=== PATIENT | male | born 1955 | race Caucasian/White ===

== ENCOUNTER 2016-08-15 18:34 | Emergency (ER) | payer OTHER ==
--- NOTE | 2016-08-15 20:22 | ED NURSING NOTES ---
Clinical Report - Nurses [facility] [address] [place] [address] 08/15/2016 18:35 Patient: SHANNAN GUSTAFSON TRIAGE Triage time 18:40 Aug 15 2016. Acuity: LEVEL 2. Chief Complaint: CHEST PAIN. 18:50 08/15/16. Alert. No acute distress. SEPSIS SCREEN: Sepsis Screen. Negative (no infection suspected/documented). AUSTIN COMA SCORE: Austin Coma Scale: 15- eyes open spontaneously (4); best verbal response- oriented x 4 (5); best motor response- obeys commands (6). --18:50 Tanvi Watson 18:50 08/15/16. BP: 192/83. HR: 64. RR: 18. O2 saturation: 99%. Temp: 98.4 F. Pain level now 2/10. --18:50 Tanvi Watson. Weight: 92 kg stated. Height/Length: 66 inches Per Patient. BMI: 32.8. --18:49 Tanvi Watson. Medications Metoprolol Tartrate Oral 25 mg, 2xdaily. --18:46 Tanvi Watson Losartan Potassium Oral 50 mg, daily (started yesterday). --18:46 Tanvi Watson Atorvastatin Calcium Oral 10 mg, daily. --18:47 Tanvi Watson. Medication/allergy information source: the patient. --18:50 Tanvi Watson. Allergies Sulfa Antibiotics.(itching) --18:45 Tanvi Watson. History Arrived by private vehicle. Historian: patient. Accompanied by spouse. Primary physician ([facility]). Onset. (End of last week, got worse). Describes the quality as aching. Relates location as in the left shoulder. Notes pain level as 3/10 on arrival and 5/10 at maximum. ( Pt feels clammy, light headed, and has pain in his left shoulder. Reports gas and decreased appetite. Pt reports anxiety.). He has had a subjective fever. No difficulty breathing, nausea, vomiting or cough. Treatment ADMISSIONS RECRUITER: None. PAST MEDICAL HX: Immunizations: up-to-date. SOCIAL HX: Never smoker. Occasional alcohol use. History of occasional drug use: marijuana. FALL RISK ASSESSMENT: Fall risk assessment completed. No fall risk identified. NUTRITIONAL RISK ASSESSMENT: The nutritional risk assessment revealed no deficiencies. FUNCTIONAL ASSESSMENT: Functional assessment: no impairments noted. LEARNING NEEDS ASSESSMENT: The learning needs assessment revealed no barriers. SKIN INTEGRITY ASSESSMENT: Skin integrity risk assessment completed. No skin integrity risk identified. --18:50 Tanvi Watson. PROBLEMS: Hypertension. --18:48 Tanvi Watson. ADDITIONAL SURGERIES: Hernia Repair. --18:48 Tanvi Watson. Assessment The patient states feels the same. --18:50 Tanvi Watson. Interventions ID band on patient. EKG time: (1846). EKG was ordered, performed by a tech and shown to the ED physician. --18:50 Tanvi Watson. PHYSICAL ASSESSMENT 18:53 08/15/16. Ambulatory to room. Patient gowned. GENERAL / NEURO / PSYCH: Alert. Oriented X 4. Appears in no acute distress. HEENT: Mucous membranes are pink. RESPIRATORY: Respirations not labored. Chest nontender. No chest wall tenderness. CVS: Cardiac rhythm: normal sinus rhythm. Heart sounds within normal limits. Pulses within normal limits. Capillary refill less than 2 seconds. GI / : Abdomen soft and nontender. EXTREMITIES: No lower extremity edema. SKIN: Skin is warm and dry. Normal skin turgor. Skin is non-tender. --18:53 Tanvi Watson. NURSING PROGRESS NOTES 18:53 08/15/16. The plan of care for this patient has been created. pitch gatherer, pulse oximeter and NIBP monitor placed on patient; monitor alarms on. Patient gowned. Head of bed elevated. Reassurance given. Two patient identifiers checked. Call light placed in reach. Side rails up x 1. Bed placed in lowest position. Brakes of bed on. Patient ready for evaluation- chart flagged and ED physician and MACHINE SPRAYER notified. --18:53 Tanvi Watson 18:59 08/15/2016 Site #1 started via IV in the right antecubital space with an 20g angiocath, with aseptic technique and good blood return; one attempt. Blood drawn: rainbow set. Labeled in the presence of the patient and sent to the lab. Saline lock flushed with 10 mL saline. --19:04 Tanvi Watson 19:31 08/15/16. BP: 164/80. HR: 59. O2 saturation: 98%. --19:31 Tanvi Watson. DISPOSITION / DISCHARGE Condition at departure: stable. No learning barriers present. Discharge instructions provided and reviewed with the patient. Reviewed medication(s) side effects, precautions, dosing and course information. Prescription(s) given to the patient. Follow up contact number. Patient verbalized understanding. Written instructions provided in Greenlandic. The patient was discharged home and accompanied by spouse. He left the Emergency Department ambulatory and via private vehicle. Spouse driving. --20:37 Dian Holden R.N. 20:36 08/15/16. BP: 156/74. HR: 56. RR: 15. O2 saturation: 96% on room air. Temp: deferred. Prather-Wallace pain scale: 2/10. --20:37 Dian Holden R.N. 20:30 08/15/2016 Site #1 removed upon discharge. Catheter intact. Manual pressure and bandage applied. --20:37 Dian Holden R.N. Locked/Released at 08/15/2016 20:37 by Dian Holden R.N.
--- NOTE | 2016-08-15 20:22 | ED CLINICAL REPORT ---
Clinical Report - Physicians/Mid Levels [facility] [address] [place] [address] 08/15/2016 18:35 Patient: SHANNAN GUSTAFSON Time Seen: 18:44; initial patient contact. Arrived- By private vehicle. Historian- patient. HISTORY OF PRESENT ILLNESS Chief Complaint: BLOOD PRESSURE ELEVATED. At its maximum, severity described as moderate. When seen in the E.D., severity described as moderate. Modifying factors. Not worsened by anything. Not relieved by anything. This started yesterday and is still present. It was gradual in onset. The patient has had a headache. No visual disturbance. Similar symptoms previously: None. Recent medical care: The patient was seen recently in the office. REVIEW OF SYSTEMS No difficulty breathing, chest pain, abdominal pain, nausea or vomiting. No double vision. He has had a headache. No difficulty with ambulation. All systems otherwise negative, except as recorded above. PAST HISTORY Hypertension. SURGERIES: Hernia Repair. Medications: Atorvastatin Calcium Oral 10 mg, daily. Losartan Potassium Oral 50 mg, daily (started yesterday). Metoprolol Tartrate Oral 25 mg, 2xdaily. Allergies: Sulfa Antibiotics.(itching). SOCIAL HISTORY Never smoker. Occasional alcohol use. History of drug use: marijuana. ADDITIONAL NOTES The nursing notes have been reviewed. PHYSICAL EXAM Vital Signs: 08/15/2016 18:50 BP: 192/83. HR: 64. RR: 18. O2 saturation: 99%. Temp: 98.4 F. Have been reviewed. Hypertensive. Heart rate normal. Respiratory rate normal. Temperature normal. Oxygen saturation normal. Appearance: Alert. No acute distress. Eyes: Pupils equal, round and reactive to light. Eyes normal inspection. ENT: Pharynx normal. Neck: Normal inspection. Neck supple. No JVD. CVS: Normal heart rate and rhythm. Heart sounds normal. Respiratory: No respiratory distress. Breath sounds normal. Skin: Skin warm and dry. Normal skin color. Extremities: No calf tenderness. No lower extremity edema. Neuro: Oriented X 3. No motor deficit. No sensory deficit. LABS, X-RAYS, AND EKG EKG: EKG time: (1846). No acute ischemia. Normal sinus rhythm. Rate: 62. Normal P waves. Normal JACK. Normal QRS complex. Incomplete RBBB. Left axis deviation. Normal ST and T waves, QT and QTc. Prior EKG unavailable. The study has been interpreted contemporaneously by me. The study has been independently viewed by me. The EKG appears to be a good tracing. I agree with and confirm the computer reading of the EKG. Interpretation time: 1846. Chest X-ray: No acute disease. Borderline cardiomegaly. Normal lung markings present. No infiltrate. Views: AP. Technique: good. The X-rays were independently viewed by me and interpreted contemporaneously by me. Prior films were not available for comparison. Laboratory Tests: CBC w Diff: (COLEEN: 08/15/2016 19:01) ( Mscvd 08/15/2016 19:21) Final results Test Result Flag Units (Reference) WHITE BLOOD COUNT 10.9 K/uL (4.5-11.5) RED BLOOD COUNT 5.02 M/uL (4.50-5.90) HEMOGLOBIN 15.5 gm/dL (13.5-17.5) HEMATOCRIT 46.6 % (41.0-53.0) MEAN CELL VOLUME 93 fL (80-100) MEAN CORPUSCULAR HGB 31 pg (26-34) MEAN CORPUSCULAR HGB CONC 33 g/dL (31-37) RED CELL DISTRIBUTION WIDTH 13.3 % (11.6-14.8) PLATELET COUNT 196 K/uL (150-400) NEUTROPHIL % 59.0 % (50-75) LYMPH % 30.7 % (25-40) MONO % 7.9 % (3-14) EOSINOPHIL % 1.9 % (0-4) BASOPHIL % 0.5 % (0-2) CHEM 13 PANEL: (COELEN: 08/15/2016 19:01) ( MsgRcvd 08/15/2016 19:33) Final results Test Result Flag Units (Reference) GLUCOSE 114 H mg/dL (70-110) BUN 20 H mg/dL (7-18) CREATININE 1.1 mg/dL (0.6-1.3) Estimated GFR >60 mL/min Estimated GFR- >60 mL/min Note: Persistent reduction over 3 months in eGFR<60 mL/min/1.73 m2 defines CKD. Patients with eGFR values>=60 mL/min/1.73 m2 may also have CKD if evidence ofpersistent proteinuria. Additional information may be foundat www.kidney.org. SODIUM 143 mmol/L (136-145) POTASSIUM 4.0 mmol/L (3.5-5.1) CHLORIDE 106 mmol/L (98-107) CARBON DIOXIDE 29 mmol/L (21-32) CALCIUM 9.5 mg/dL (8.5-10.1) TOTAL PROTEIN 7.4 g/dL (6.4-8.2) ALBUMIN 3.8 g/dL (3.3-5.0) BILIRUBIN, TOTAL 0.5 mg/dL (0.0-1.0) ALKALINE PHOSPHATASE 80 U/L (46-116) AST (SGOT) 23 U/L (15-37) ALT (SGPT) 48 U/L (12-78) MAGNESIUM 2.1 mg/dL (1.8-2.4) CPK 209 U/L (24-260) TROPONIN I <0.05 ng/mL (0.00-1.5) TROPONIN REFERENCE RANGE:<0.1 NEGATIVE0.1-1.5 INDETERMINANT>1.5 POSITIVE . PROGRESS AND PROCEDURES Course of Care: 08/15/2016 19:31 BP: 164/80. HR: 59. O2 saturation: 98%. Vital Signs: have been reviewed. Hypertensive. Bradycardic. Disposition: Discharged home in good and improved condition. CLINICAL IMPRESSION Uncontrolled essential hypertension. INSTRUCTIONS Follow a low salt diet. Your Current Medications: CONTINUE TAKING THE FOLLOWING MEDICATIONS: Atorvastatin Calcium Oral : 10 mg daily. Losartan Potassium Oral : 50 mg daily, started yesterday. Metoprolol Tartrate Oral : 25 mg 2xdaily. Prescription Medications: Hydrochlorothiazide 12.5 mg 1 PO q day Disp # 15 No refills. Follow-up: Follow up with your doctor in about two days. Call for an appointment. Blood pressure screening was not performed during this visit because the patient has an active diagnosis of hypertension. The patient should follow up with a primary care provider for blood pressure management. (Electronically signed by Dean Mackey Dr. 08/17/2016 21:56)
--- NOTE | 2016-08-15 20:22 | ED NURSING NOTES ---
Clinical Report - Nurses [facility] [address] [place] [address] 08/15/2016 18:35 Patient: SHANNAN GUSTAFSON TRIAGE Triage time 18:40 Aug 15 2016. Acuity: LEVEL 2. Chief Complaint: CHEST PAIN. 18:50 08/15/16. Alert. No acute distress. SEPSIS SCREEN: Sepsis Screen. Negative (no infection suspected/documented). AUSTIN COMA SCORE: Austin Coma Scale: 15- eyes open spontaneously (4); best verbal response- oriented x 4 (5); best motor response- obeys commands (6). --18:50 Tanvi Watson 18:50 08/15/16. BP: 192/83. HR: 64. RR: 18. O2 saturation: 99%. Temp: 98.4 F. Pain level now 2/10. --18:50 Tanvi Watson. Weight: 92 kg stated. Height/Length: 66 inches Per Patient. BMI: 32.8. --18:49 Tanvi Watson. Medications Metoprolol Tartrate Oral 25 mg, 2xdaily. --18:46 Tanvi Watson Losartan Potassium Oral 50 mg, daily (started yesterday). --18:46 Tanvi Watson Atorvastatin Calcium Oral 10 mg, daily. --18:47 Tanvi Watson. Medication/allergy information source: the patient. --18:50 Tanvi Watson. Allergies Sulfa Antibiotics.(itching) --18:45 Tanvi Watson. History Arrived by private vehicle. Historian: patient. Accompanied by spouse. Primary physician ([facility]). Onset. (End of last week, got worse). Describes the quality as aching. Relates location as in the left shoulder. Notes pain level as 3/10 on arrival and 5/10 at maximum. ( Pt feels clammy, light headed, and has pain in his left shoulder. Reports gas and decreased appetite. Pt reports anxiety.). He has had a subjective fever. No difficulty breathing, nausea, vomiting or cough. Treatment MILK TESTER: None. PAST MEDICAL HX: Immunizations: up-to-date. SOCIAL HX: Never smoker. Occasional alcohol use. History of occasional drug use: marijuana. FALL RISK ASSESSMENT: Fall risk assessment completed. No fall risk identified. NUTRITIONAL RISK ASSESSMENT: The nutritional risk assessment revealed no deficiencies. FUNCTIONAL ASSESSMENT: Functional assessment: no impairments noted. LEARNING NEEDS ASSESSMENT: The learning needs assessment revealed no barriers. SKIN INTEGRITY ASSESSMENT: Skin integrity risk assessment completed. No skin integrity risk identified. --18:50 Tanvi Watson. PROBLEMS: Hypertension. --18:48 Tanvi Watson. ADDITIONAL SURGERIES: Hernia Repair. --18:48 Tanvi Watson. Assessment The patient states feels the same. --18:50 Tanvi Watson. Interventions ID band on patient. EKG time: (1846). EKG was ordered, performed by a tech and shown to the ED physician. --18:50 Tanvi Watson. PHYSICAL ASSESSMENT 18:53 08/15/16. Ambulatory to room. Patient gowned. GENERAL / NEURO / PSYCH: Alert. Oriented X 4. Appears in no acute distress. HEENT: Mucous membranes are pink. RESPIRATORY: Respirations not labored. Chest nontender. No chest wall tenderness. CVS: Cardiac rhythm: normal sinus rhythm. Heart sounds within normal limits. Pulses within normal limits. Capillary refill less than 2 seconds. GI / : Abdomen soft and nontender. EXTREMITIES: No lower extremity edema. SKIN: Skin is warm and dry. Normal skin turgor. Skin is non-tender. --18:53 Tanvi Watson. NURSING PROGRESS NOTES 18:53 08/15/16. The plan of care for this patient has been created. monitor technician, pulse oximeter and NIBP monitor placed on patient; monitor alarms on. Patient gowned. Head of bed elevated. Reassurance given. Two patient identifiers checked. Call light placed in reach. Side rails up x 1. Bed placed in lowest position. Brakes of bed on. Patient ready for evaluation- chart flagged and ED physician and CHANNEL SALES MANAGER notified. --18:53 Tanvi Watson 18:59 08/15/2016 Site #1 started via IV in the right antecubital space with an 20g angiocath, with aseptic technique and good blood return; one attempt. Blood drawn: rainbow set. Labeled in the presence of the patient and sent to the lab. Saline lock flushed with 10 mL saline. --19:04 Tanvi Watson 19:31 08/15/16. BP: 164/80. HR: 59. O2 saturation: 98%. --19:31 Tanvi Watson. DISPOSITION / DISCHARGE Condition at departure: stable. No learning barriers present. Discharge instructions provided and reviewed with the patient. Reviewed medication(s) side effects, precautions, dosing and course information. Prescription(s) given to the patient. Follow up contact number. Patient verbalized understanding. Written instructions provided in [place] Verdean. The patient was discharged home and accompanied by spouse. He left the Emergency Department ambulatory and via private vehicle. Spouse driving. --20:37 Dian Holden R.N. 20:36 08/15/16. BP: 156/74. HR: 56. RR: 15. O2 saturation: 96% on room air. Temp: deferred. Prather-Wallace pain scale: 2/10. --20:37 Dian Holden R.N. 20:30 08/15/2016 Site #1 removed upon discharge. Catheter intact. Manual pressure and bandage applied. --20:37 Dian Holden R.N. Locked/Released at 08/15/2016 20:37 by Dian Holden R.N.
--- NOTE | 2016-08-15 20:22 | ED ORDER SUMMARY ---
..... Patient: SHANNAN GUSTAFSON OrderSheet [facility] VisitID: [id number] [address] [place] [address] 61y, M Registration Date/Time: 08/15/2016 ORDER SHEET Weight: 92.0 kg (stated) Allergies: Sulfa Antibiotics GENERAL ORDERS: Chest 1V Urgent (19:05 08/15/2016 Jarett Costa) (Ack 19:07 LNations ER Tech1) (19:40 MCampbell) Cardiac Panel Stat (19:08/15/2016 Jarett Costa) (Ack 19:07 LNations ER Tech1) (19:19 ASchmuck) EKG - ER Stat (19:08/15/2016 Jarett Costa) (19:06 ASchmuck) MEDICATION ORDERS: IV FLUIDS: IV Saline Lock (19:08/15/2016 Jarett Costa) (19:06 ASchmuck) ORDER SHEET NOTES: [Electronically signed by Dian Holden R.N. (20:37 08/15/2016)] [Electronically signed by Dean Mackey Dr. (21:56 08/17/2016)] [Electronically locked/signed by Dian Holden R.N. (20:37 08/15/2016)]
--- NOTE | 2016-08-15 20:22 | ED ORDER SUMMARY ---
..... Patient: SHANNAN GUSTAFSON OrderSheet [facility] VisitID: [id number] [address] [place] [address] 61y, M Registration Date/Time: 08/15/2016 ORDER SHEET Weight: 92.0 kg (stated) Allergies: Sulfa Antibiotics GENERAL ORDERS: Chest 1V Urgent (19:05 08/15/2016 Jarett Costa) (Ack 19:07 LNations ER Tech1) (19:40 MCampbell) Cardiac Panel Stat (19:08/15/2016 Jarett Costa) (Ack 19:07 LNations ER Tech1) (19:19 ASchmuck) EKG - ER Stat (19:08/15/2016 Jarett Costa) (19:06 ASchmuck) MEDICATION ORDERS: IV FLUIDS: IV Saline Lock (19:08/15/2016 Jarett Costa) (19:06 ASchmuck) ORDER SHEET NOTES: [Electronically signed by Dian Holden R.N. (20:37 08/15/2016)] [Electronically signed by Dean Mackey Dr. (21:56 08/17/2016)] [Electronically locked/signed by Dian Holden R.N. (20:37 08/15/2016)]
--- NOTE | 2016-08-15 22:13 | DIAGNOSTIC IMAGING REPORT ---
PROCEDURE: XR CHEST 1 VIEW INDICATION: CHEST PAIN TECHNIQUE: Single view chest. 1921 hours COMPARISON: None. FINDINGS: The cardiomediastinal contour and central vasculature are normal. The lungs are clear without focal consolidation, pleural effusion or pneumothorax. The osseous structures are intact. IMPRESSION: 1. No evidence of acute cardiopulmonary disease.
--- NOTE | 2016-08-17 21:56 | ED MAR SUMMARY ---
..... Medication Administration Record [facility] [address], [place] [id number] Patient: SHANNAN GUSTAFSON Visit ID: [id number] 61y, M Weight: 92.0 kg Height/Length: 66 in BMI: 32.8 ALLERGIES: Sulfa Antibiotics
--- NOTE | 2016-08-17 21:56 | ED DISCHARGE INSTRUCTIONS ---
Patient: SHANNAN GUSTAFSON General Instructions Formerly [facility] VisitID: [id number] [place] [address] 61y, M Registration Date/Time: 08/15/2016 Uncontrolled essential hypertension. INSTRUCTIONS Follow a low salt diet. Your Current Medications: CONTINUE TAKING THE FOLLOWING MEDICATIONS: Atorvastatin Calcium Oral : 10 mg daily. Losartan Potassium Oral : 50 mg daily, started yesterday. Metoprolol Tartrate Oral : 25 mg 2xdaily. Prescription Medications: Hydrochlorothiazide 12.5 mg 1 PO q day Disp # 15 No refills. Follow-up: Follow up with your doctor in about two days. Call for an appointment. Blood pressure screening was not performed during this visit because the patient has an active diagnosis of hypertension. The patient should follow up with a primary care provider for blood pressure management. ADDITIONAL INFORMATION Hypertension, Out Of Control (Established) Your blood pressure was unusually high today. This can occur as a result of missing doses of your blood pressure medicine. Some asthma inhalers, decongestants, diet pills, and street drugs such as cocaine and amphetamine can worsen hypertension. An increase in body weight, increase in salt intake, smoking, and caffeine are other causes. Emotional upset or acute pain can cause a sudden rapid rise in blood pressure which may return to normal after a period of rest. A normal blood pressure is less than 140/90. The first (top) number is the systolic pressure. The second (bottom) number is the diastolic pressure. Hypertension exists when either the top number is 140 or higher, OR the bottom number is 90 or higher on repeated measurements. Home Care: All patients with high blood pressure should do the following to lower their pressure. If you are on blood pressure medicines, then these methods may reduce or eliminate your need for medicines in the future. Begin a weight-loss program if you are overweight. Reduce your salt intake. Avoid high-salt foods (olives, pickles, smoked meats, salted potato chips, etc.). Do not add salt to your food at the table. Use only small amounts of salt when cooking. Begin an exercise program. Discuss with your doctor what type of exercise program would be best for you. It doesnt have to be difficult. Even brisk walking for 20 minutes3 times a week is a good form of exercise. Avoid medicines which contain heart stimulants. This includes many cold and sinus decongestant pills and sprays as well as diet pills. Check the warnings about hypertension on the label. Stimulants such as amphetamine or cocaine could be lethal for someone with hypertension. Never take these. Limit your caffeine intake or switch to decaf. Stop smoking. If you are a long-time smoker, this can be hard. Enroll in a stop-smoking program to improve your chance of success. Talk to your physician about ways to improve your chance of success. Learning how to handle stress better is an important part of any program to lower blood pressure. Learn about relaxation methods such as meditation, yoga, or biofeedback. If medicines were prescribed, take them exactly as directed. Missing doses may cause your blood pressure to get out of control. Consider buying an automatic blood pressure machine (available at many pharmacies). Use this to monitor your blood pressure and report to your doctor. Follow Up: Regular visits to your own doctor for blood pressure checks and medicine adjustment is an important part of your care. Make a follow-up appointment as directed by our staff. Get Prompt Medical Attention if any of the following occur: Chest, arm, shoulder, neck, or upper back pain Shortness of breath Severe headache Throbbing or rushing sound in the ears Nosebleed Extreme drowsiness, confusion, or fainting Dizziness or vertigo (dizziness with spinning sensation) Weakness of an arm or leg or one side of the face Difficulty with speech or vision Low-Salt Diet (2 Grams/Day) This diet eliminates foods that are high in salt and restricts the amount of salt that you cook with. It is most often used for patients with high blood pressure, edema (fluid retention), kidney, liver, and heart disease. Table salt contains the mineral sodium. The body needs sodium to work normally. But too much sodium can make your health problems worse. Your healthcare provider is recommending a low-salt (also called low-sodium) diet for you. Your total daily allowance of salt (sodium) is 2 grams. This equals 2,000 milligrams (mg). It is less than 1 teaspoon of table salt. This means you can have only about 700 mg of sodium at each meal. When you cook, limit the salt you use. And if you can avoid using salt, even better. Do not add salt at the table. So, throw away the saltshaker! When shopping, read the package labels. Salt is often called sodium on the label. Choose foods that are Salt-Free, Low Salt, or Very Low Salt. Note that foods with Reduced Salt may notlower your salt intake enough. Beverages OK: Tea, coffee, carbonated beverages, juices AVOID: Flavored international coffees, electrolyte replacement drinks, sports beverages Bread & Cereals OK: All regular bread, rolls, cereals, cakes; low-salt crackers, matzoh crackers AVOID: Salted crackers, pretzels, popcorn; icelandic toast, pancakes, muffins Fruits & Desserts OK: Ice cream, frozen yogurt, juice bars, gelatin (Jell-O), cookies and pies, sugar, honey, jelly, hard candy AVOID: Most pies, cakes and cookies prepared or processed with salt, instant pudding Meats OK: All fresh meat, fish, poultry, low-salt tuna AVOID: Smoked, pickled, brine-cured, or salted meats or fish. Thisincludes [place]field, chipped beef, corned beef, hot dogs, luncheon meats, ham, kosher meats, salt pork, sausage, canned tuna, salted codfish, smokedsalmon, houser, sardines, or anchovies. Dairy OK: Milk, chocolate milk, hot chocolate mix; eggs, Low Salt cheeses, yogurt, egg substitute AVOID: Processed cheese, cheese spreads, Roquefort, Camembert, and cottage cheese, buttermilk, instant breakfast drink Beans, Potatoes & Pasta OK: Dry beans, split peas, lentils, potatoes, rice, macaroni, noodles, spaghetti without added salt AVOID: Potato chips, tortilla chips, and similar products Soups OK: Low-salt soups and broths made with allowed foods AVOID: Bouillon cubes, soups with smoked or salted meats, regular soup and broth Vegetables OK: Most are okay; low-salt tomato and vegetable juices AVOID: Sauerkraut and other brine-soaked vegetables, pickles and other pickled vegetables, tomato juice, olives Seasoning & Spices OK: Most seasonings are okay. Good substitutes for salt include: fresh herb blends, Tabasco, lemon, garlic, haas, vinegar, dry mustard, parsley, cilantro, horseradish, tomato paste, regular margarine, mayonnaise, butter, cream cheese, vegetable oil, cream, low-salt salad dressing and gravy AVOID: Regular ketchup, relishes, pickles, soy sauce, teriyaki sauce, Worcestershire sauce, BBQ sauce, tartar sauce, meat tenderizer, chili sauce, regular gravy, regular salad dressing You have been given the following additional information: Hypertension, Established, Out Of Control Diet, Low Salt (2Gm) (Electronically signed by Dean Mackey Dr. 08/17/2016 21:56)
--- NOTE | 2016-08-17 21:56 | ED MED RECONCILIATION SUMMARY ---
Patient: SHANNAN GUSTAFSON Medication Reconciliation Report [facility] VisitID: [id number] [address] [place] [address] 61y, M Registration Date/Time: 08/15/2016 Weight: 92.0 kg Height/Length: 66 in. BMI: 32.8 ALLERGIES: Sulfa Antibiotics The patient's Home Medications are listed below: CONTINUE TAKING THE FOLLOWING MEDICATIONS: Atorvastatin Calcium Oral 10 mg, daily Losartan Potassium Oral 50 mg, daily, started yesterday Metoprolol Tartrate Oral 25 mg, 2xdaily The source(s) of the original Home Medication information: patient The following Medications were given to the patient in the Emergency Department: None. The following Medications were prescribed to the patient: Hydrochlorothiazide 12.5 mg1 PO q dayDisp # 15No refills. -- Dean Mackey Dr.
--- NOTE | 2016-08-17 21:56 | ED MAR SUMMARY ---
..... Medication Administration Record [address] [place], [place] [id number] Patient: SHANNAN GUSTAFSON Visit ID: [id number] 61y, M Weight: 92.0 kg Height/Length: 66 in BMI: 32.8 ALLERGIES: Sulfa Antibiotics
--- NOTE | 2016-08-17 21:56 | ED MED RECONCILIATION SUMMARY ---
Patient: SHANNAN GUSTAFSON Medication Reconciliation Report [facility] VisitID: [id number] [address] [place] [address] 61y, M Registration Date/Time: 08/15/2016 Weight: 92.0 kg Height/Length: 66 in. BMI: 32.8 ALLERGIES: Sulfa Antibiotics The patient's Home Medications are listed below: CONTINUE TAKING THE FOLLOWING MEDICATIONS: Atorvastatin Calcium Oral 10 mg, daily Losartan Potassium Oral 50 mg, daily, started yesterday Metoprolol Tartrate Oral 25 mg, 2xdaily The source(s) of the original Home Medication information: patient The following Medications were given to the patient in the Emergency Department: None. The following Medications were prescribed to the patient: Hydrochlorothiazide 12.5 mg1 PO q dayDisp # 15No refills. -- Dean Mackey Dr.
== END 2016-08-15 20:35 | disposition home or self-care (01) ==
LOC: ED SRH 18:34
DX: I10 Essential (primary) hypertension (principal); Z79.899 Other long term (current) drug therapy; Z88.1 Allergy status to other antibiotic agents
CPT/HCPCS: 90100; 90616; 92610; 92720; 95059